=== PATIENT | female | born 1990 | race American Indian/Alaskan Native ===

== ENCOUNTER 2019-08-02 12:18 | Emergency (ER) | payer SELFPAY ==
[2019-08-02 12:30] VITALS: BP 149/90
--- NOTE | 2019-08-02 12:32 | Event Note ---
ED Screening Note Date of service: 08/02/19 Time: 12:27 ED Screening Note: This is a 29 y.o. F. that presents to the ER with numbness and tingling to LUE. Reports headache and left sided chest pain. Denies recent injury Current smoker This initial assessment/diagnostic orders/clinical plan/treatment(s) is/are subject to change based on patients health status, clinical progression and re- assessment by fellow clinical providers in the ED. Further treatment and workup at subsequent clinical providers discretion. Patient/guardian urged not to elope from the ED as their condition may be serious if not clinically assessed and managed. Initial orders include: CXR and L-shoulder
--- NOTE | 2019-08-02 13:15 | XRay Report ---
Left shoulder-3 views INDICATION: pain, decreased ROM. COMPARISON: Chest x-ray from earlier today and also 09/21/2013 IMPRESSION: No acute osseous or soft tissue abnormality. No significant DJD. Signer Name: Martín Peter MD Signed: 08/02/2019 1:11 PM Workstation Name: [id number]
--- NOTE | 2019-08-02 13:20 | XRay Report ---
CHEST 2 VIEWS INDICATION: left sided chest pain. COMPARISON: 09/21/2013 FINDINGS: Support devices: None. Heart: Within normal limits. Pulmonary vasculature: Normal. Lungs/pleura: No acute air space or interstitial disease. No pneumothorax. Additional findings: The epigastric air bubble is particularly prominent. IMPRESSION: 1. No acute cardiopulmonary process. 2. Gaseous distention of the stomach which may be clinically significant. Signer Name: Vasu Magaña MD Signed: 08/02/2019 1:15 PM Workstation Name: [id number]
== END 2019-08-02 14:32 | disposition left against medical advice (07) ==
LOC: ED 12:18
DX: R20.0 Anesthesia of skin (principal); Z53.21 Procedure and treatment not carried out due to patient leaving prior to being seen by health care provider
CPT/HCPCS: 71046

== ENCOUNTER 2019-10-09 06:25 | Emergency (ER) | payer SELFPAY ==
[2019-10-09 06:34] VITALS: BP 144/96
== END 2019-10-09 06:45 | disposition left against medical advice (07) ==
LOC: ED 06:25
DX: R06.02 Shortness of breath (principal); Z53.21 Procedure and treatment not carried out due to patient leaving prior to being seen by health care provider

== ENCOUNTER 2020-10-05 08:53 | Outpatient (CLI) | payer OTHER ==
--- NOTE | 2020-10-05 10:26 | XRay Report ---
LUMBAR SPINE 3 VIEWS INDICATION / CLINICAL INFORMATION: BACK PAIN. COMPARISON: None available. FINDINGS: VERTEBRAE: No acute fracture. No significant malalignment. DISC SPACES / FACET JOINTS:No significant abnormality. PARASPINAL SOFT TISSUES:No significant abnormality. ADDITIONAL FINDINGS: None. Signer Name: Guerrero Murcia MD Signed: 10/05/2020 10:22 AM Workstation Name: [email or web address]
--- NOTE | 2020-10-05 10:28 | XRay Report ---
RIGHT KNEE 2 VIEW(S) INDICATION / CLINICAL INFORMATION: RIGHT KNEE PAIN COMPARISON: None available. FINDINGS: BONES / JOINT(S): No acute fracture or subluxation. No significant arthritis. SOFT TISSUES: Mild suprapatellar knee joint effusion. ADDITIONAL FINDINGS: None. Signer Name: Guerrero Murcia MD Signed: 10/05/2020 10:24 AM Workstation Name: [email or web address]
--- NOTE | 2020-10-05 10:28 | XRay Report ---
RIGHT SHOULDER 3 VIEW(S) INDICATION / CLINICAL INFORMATION: RIGHT SHOULDER PAIN COMPARISON: None available. FINDINGS: BONES / JOINT(S): No acute fracture or subluxation. No significant arthritis. SOFT TISSUES: No significant abnormality. ADDITIONAL FINDINGS: None. Signer Name: Guerrero Murcia MD Signed: 10/05/2020 10:23 AM Workstation Name: [id number]
== END 2020-10-05 08:54 | disposition home or self-care (01) ==
LOC: XRAY 08:53
PROVIDERS: ATTEND Internal Medicine
DX: M25.461 Effusion, right knee (principal); M54.9 Dorsalgia, unspecified; F32.9 Major depressive disorder, single episode, unspecified
CPT/HCPCS: 72100